=== PATIENT | female | born 1950 | race Caucasian/White ===

== ENCOUNTER 2021-05-22 06:24 | Day surgery (SDC) | payer MEDICARE ==
[~2021-05-22] VITALS: Ht 158 cm; Wt 86.2 kg
[~2021-05-22 06:24] MED LIST: AMLODIPINE BESY10 MG PO; ARMOUR THYROID60 MG PO; BENADRYL25 MG PO; CELECOXIB200 MG PO; IRON18 MG PO; LOSARTAN POTASS25 MG PO; MAGNESIUM MALATE1 GM PO; METAMUCIL1 DOSE PO; MILK THISTLE140 M1 PO; OS-CAL500 MG PO; PROBIOTIC1 EAC3 PO; VITAMIN B COMP1 EACH PO
--- NOTE | 2021-05-22 11:33 | NUR ---
PT. HAD RIGHT TOTAL KNEE REPLACEMENT THIS DATE. PT. WILL D/C HOME ON 05/23/21./ PT. REQUESTS A [facility]LL[facility] WALKER FROM [place] TO BE DELIVERED UPON DISHCARGE. PT. REQUESTS [facility] FOR PT ONLY.
[2021-05-23 07:27] LABS: BASOPHIL 0.6 % (0-2); EOSINOPHIL 1.9 % (0-7); HCT 35.4 % (37.0-47.0); HGB 11.2 g/dl (12.5-16.0); LYMPHOCYTE 12.7 % (15-48); MCH 28.3 pg (25.0-31.0); MCHC 31.6 g/dL (32.0-36.0); MCV 89.4 fL (78.0-100.0); MONOCYTE 8.5 % (0-12); MPV 9.5 fL (6.0-9.5); NEUTROPHIL 75.8 % (41-80); NRBC 0; PLT 204 K/uL (150-400); RBC 3.96 M/uL (4.20-5.40); RDW 13.9 % (11.5-14.0); WBC 10.1 K/uL (4.0-10.5)
[2021-05-23 08:00] LABS: BUN/CREAT RATIO (CALC) 13.2 RATIO; CREATININE 0.68 mg/dL (0.51-0.95)
[2021-05-23] MEDS ORDERED: ULTRA-LIGHT RO1 EACH XX (09:11)
[2021-05-23] MEDS ORDERED: XARELTO10 MG PO (09:11)
[2021-05-23] MEDS ORDERED: OXYCODONE-ACET1 EAC1 PO (09:11)
[2021-05-23] MEDS ORDERED: FEOSOL325 MG PO (09:11)
[2021-05-23] MEDS ORDERED: 3IN1 COMMODE XX (09:11)
== END 2021-05-23 10:48 | disposition home or self-care (01) ==
LOC: FAS 06:24
PROVIDERS: Legal Medicine
DX: M17.11 Unilateral primary osteoarthritis, right knee (principal); M21.061 Valgus deformity, not elsewhere classified, right knee; G89.18 Other acute postprocedural pain; I10 Essential (primary) hypertension; E03.9 Hypothyroidism, unspecified; E78.5 Hyperlipidemia, unspecified; Z79.899 Other long term (current) drug therapy
CPT/HCPCS: 36415; 73560; 80048; 85025; 86850; 86900; 86901; 94010; 97110; 97162; 97166; 97530-GP; 97535; C1713; C1776; J0171; J0697; J1885; J2250; J2270; J2704; J2795; J3010; J7120